=== PATIENT | male | born 1960 | race Caucasian/White ===

== ENCOUNTER → 2018-07-07 | Outpatient (CLI) | payer OTHER | DX: T17.990A Other foreign object in respiratory tract, part unspecified in causing asphyxiation, initial encounter (principal); R13.13 Dysphagia, pharyngeal phase; C01 Malignant neoplasm of base of tongue | CPT/HCPCS: 92611-GN ==

== ENCOUNTER → 2018-08-25 | Outpatient (CLI) | payer OTHER | DX: R13.10 Dysphagia, unspecified (principal); Z85.810 Personal history of malignant neoplasm of tongue; Z98.890 Other specified postprocedural states | CPT/HCPCS: 92611-GN ==